=== PATIENT | male | born 1945 | race African-American/Black ===

== ENCOUNTER 2016-11-12 12:58 | Inpatient (IN) ==
--- NOTE | 2016-11-12 14:25 | EKG Report ---
Stationary ECG Study [facility] Test Date: 11/12/2016 2:22:03 PM Pat Name: JOSE FRANCISCO TORRES Department: Room: Gender: M Post Graduate Intern: NAHEED : 1945 Requested by: Cinthya Desouza Order Number: [id number] Reading MD: JARRELL GILL Intervals [place] Rate: 47 P: 63 IA: 197 QRS: 22 QRSD: 102 T: -79 QT: 457 QTc: 419 Interpretive Statements SINUS BRADYCARDIA WITH OCCASIONAL VENTRICULAR PREMATURE COMPLEXES MODERATE T-WAVE ABNORMALITY, CONSIDER LATERAL ISCHEMIA MODERATE ST-T WAVE ABNORMALITY, CONSIDER INFERIOR ISCHMIA Electronically Signed On 11-14-16 21:35:31 CDT by JARRELL GILL [email or web address]
--- NOTE | 2016-11-12 14:44 | XRay Report ---
Referring Physician: Cinthya Desouza MD Exam: XR chest 1V portable Date: November 12, 2016 at 2:33 PM Reason: Altered mental status Comparison: Chest one view portable April 14, 2016 Findings: The cardiac silhouette is again enlarged. No focal consolidation, pneumothorax or pleural effusion is identified. No acute osseous process is seen. Impression: 1. Cardiomegaly. 2. No acute pulmonary process is identified. PROCEDURE INTERPRETED AT [facility] DEPARTMENT OF RADIOLOGY Final Report Signed by: Dr. Gama Kaur
--- NOTE | 2016-11-12 14:57 | CT Report ---
Referring physician: Cinthya Desouza MD Exam: CT brain without contrast Date: November 12, 2016 Comparison: CT brain without contrast April 26, 2010 Reason: Altered mental status, left-sided weakness The patient is an Emergency Department patient on November 12, 2016. Technique: Axial images of the head were obtained without the use of contrast. Total DLP was 1042.6 mGy*cm. Findings: There is mild to moderate generalized cerebral and cerebellar atrophy/volume loss, which may have slightly progressed. There is also probable chronic microvascular ischemic change. An ill-defined area of low-attenuation is seen within the anterior aspect of the left basal ganglia, involving the caudate. This is not seen on the previous study and and likely represents an area of infarction, possibly acute. No hydrocephalus or midline shift is present. There is no evidence of recent intracranial hemorrhage. No acute osseous process is seen. Prominent calcified plaque is noted at the intracranial internal carotid arteries. The mastoid air cells and visualized paranasal sinuses are clear. Impression: 1. There is a small ill-defined area of low attenuation within the anterior left basal ganglia, which is not seen on the previous study. This is concerning for a small indeterminate age infarction and may be acute. 2. There is mild to moderate generalized cerebral and cerebellar atrophy/volume loss, which appears slightly more prominent today. Chronic microvascular ischemic change is also again suspected. The finding at the anterior aspect of the left basal ganglia was discussed with Dr. Desouza on November 12, 2016 at 2:53 PM. This is a critical test. The CT exam was performed using one or more of the following dose reduction techniques: Automated exposure control and adjustment of the mA and/or kV according to patient size. PROCEDURE INTERPRETED AT [facility] DEPARTMENT OF RADIOLOGY Final Report Signed by: Dr. Gama Kaur
[2016-11-12 15:08] LABS: Basophils % 0.3 % (0.0-0.8); Eosinophils # 0.2 10*3/uL (0.0-0.87); Eosinophils % 2.4 % (0.00-10.9); Hematocrit 43.3 VOL% (42.0-52.0); Hemoglobin 13.6 GM/DL (14.0-18.0); Immature Granulocytes % 0.3 %; Immature Granulocytes Absolute 0.03 #; Lymphocytes # 2.1 10*3/uL (1.4-4.0); Lymphocytes % 21.4 % (21.2-54.2); Mean Corpuscular HGB Conc 31.4 GM/DL (32-36); Mean Corpuscular Hemoglobin 26 PG (27-34); Mean Corpuscular Volume 82.8 FL (87-102); Mean Platelet Volume 12.3 FL (9.6-12.0); Monocytes # 1.3 10*3/uL (0.11-0.8); Monocytes % 13.4 % (1.7-12.7); Neutrophils # 6.2 10*3/uL (1.4-7.4); Neutrophils % 62.2 % (38.7-73.9); Platelet Count 211 T/CUMM (130-400); Red Blood Count 5.23 MC/CUMM (3.8-5.5); Red Cell Distribution Width 13.2 % (9.3-17.3); White Blood Count 9.9 T/CUMM (4-12)
[2016-11-12 15:20] LABS: INR 1.1; Partial Thromboplastin Time 28.1 SECS (0-40)
[2016-11-12 15:24] LABS: Apearance,Urine CLEAR (Clear); Bilirubin,Urine Negative (Negative); Blood, Urine Small mg/dL (Negative); Glucose,Urine (UA) Negative (Negative); Hyaline Casts,Urine 7 /LPF (0-3); Ketones,Urine Negative (Negative); Mucus,Urine Occasional /LPF (Occasional); Nitrite,Urine Negative (Negative); Protein,Urine Negative; RBC,Urine 2 /HPF (0-4); Squamous Epithelial Cell,Urine Occasional /HPF (0-10); Urine Color Yellow (Yellow); Urine Urobilinogen < 2.0 EU/DL (0.2-1.0); WBC,Urine 11 /HPF (0-6)
[2016-11-12 16:21] LABS: Barbiturates Screen,Urine Negative (Negative); Benzodiazepines Screen,Urine Negative (Negative); Cannabinoid Screen,Urine Negative (Negative); Opiate Screen,Urine Negative (Negative); Phencyclidine Screen,Urine Negative (Negative)
[2016-11-12 16:26] LABS: Calcium 9.5 MG/DL (8.5-10.1); Osmolality,Calculated 279.4 MOS/KG (273-304); Potassium 3.5 MMOL/L (3.5-5.1)
--- NOTE | 2016-11-12 16:31 | Emergency Department Note ---
IQuirino Emily, am scribing for, and in the presence of, Cinthya Desouza MD 14:12 . ILyly Kathryn, MD, personally performed the services described in this documentation, ascribed by June Win in my presence, and it is both accurate and complete [id number] . Arrival - Arrival Chief Complaint: Extremity Problem Stated Complaint: leg,talking funny,can't hardly walk ED Nursing Triage Note: Pt c/o right leg weakness since Sunday with difficulty ambulating but patient got out of WC in [place] and walked into triage. Pt denies being weak anywhere else. Mode of Arrival: Ambulatory Limitations: No Limitations Source: Patient, Family - History of Present Illness HPI Narrative: This is a 71 year old male with history of TIA, HTN, CAD s/p stent placement ( last placed Aug 2016 w/ Dr. Wang) on plavix brought into ER by his daughter for complaints of difficulty ambulating, right lower leg weakness, and slurred speech. Patient just points to his right leg during examination, but otherwise is difficult to understand. Daughter lives with patient, reports for past week he has had difficulty walking and some right leg weakness. She notices differences in his gait. He is also also "acting funny" with slurred speech. She reports he has some increased urinary incontinence. She denies any recent witnessed falls. Patient denies any chest pain, shortness of breath, abdominal pain. Onset (ago): week(s) (2) Consistency: constant Severity: moderate Allergies/Adverse Reactions: Allergies Allergy/AdvReac Type Severity Reaction Status Date / Time No Known Allergies Allergy Verified 04/14/16 08:51 Home Medications: Home Medications Medication Instructions Recorded Confirmed Type Acetaminophen Tab [Tylenol Tab] 325 mg PO Q4H PRN #0 tablet 04/20/16 Rx Albuterol Sulfate [Ventolin HFA] 2 puff INH Q6H PRN #1 inhaler 04/20/16 Rx Albuterol/Ipratropium Neb [Duoneb] 3 ml RESP TX RT Q6H #120 04/20/16 Rx nebulization solution Aspirin EC Tab 81 mg PO DAILY tablet 04/20/16 Rx Atorvastatin [Lipitor] 80 mg PO DAILY #60 tablet 04/20/16 Rx Carvedilol [Coreg] 3.125 mg PO BID #60 tablet 04/20/16 Rx Clopidogrel [Plavix] 75 mg PO DAILY #30 tablet 04/20/16 Rx Furosemide Tab [Lasix Tab] 40 mg PO DAILY #30 tablet 04/20/16 Rx Lisinopril [Prinivil] 10 mg PO DAILY #30 tablet 04/20/16 Rx Spironolactone [Aldactone] 25 mg PO DAILY #30 tablet 04/20/16 Rx Review of System - Review of System 12 point system: reviewed and no additional remarkable complaints except as stated - Review of System Constitutional: Present: weakness. Absent: fever Eyes: Absent: vision change Head/Ears/Nose/Throat: Absent: nasal drainage Respiratory: Absent: cough, respiratory distress, wheezing Cardiovascular: Absent: chest pain, palpitations, dyspnea on exertion, edema Gastrointestinal: Absent: abdominal pain, nausea, vomiting, diarrhea, constipation Genitourinary male: Present: other (urinates on himself). Absent: dysuria Musculoskeletal: Present: leg pain (right leg weakness). Absent: arm pain, back pain Skin: Absent: rash Neurological: Present: weakness, confusion, abnormal gait. Absent: headache, numbness, paresthesias Medical,Surgical,& Family Hx - Medical History Cardio: History of: CAD, Hypertension Neurology: History of: TIA HEENT: History of: Eye Problem (Cataracts; Glasses), Dental Problems (Full Set Dentures) Respiratory: History of: Asthma (childhood) No history of: Respiratory Problems (No Flu or pneum Vac) Gastrointestinal: History of: GERD, Polyps (c-scope 04/04/16 4-5 polyps removed) Hematology: No history of: Blood Transfusion Reaction (No Transfusions) Other: No history of: Anesthesia Reactions, Cancer - Surgical History Cardiac Surgeries: Sugical HX of: Cardiac Catheterization (stent Dr Wang) HEENT Surgeries: Surgical HX of: Eye Surgery (Rt Eye; 09/29/15 Sched for Lt Eye Dr. Avina) Abdominal Surgeries: Surgical HX of: Colonoscopy - Family History Family History: Reports;: Family Heart Disease (mama, father), Family Hypertension (mama, father) - Social History Smoking Status: Former smoker Exam Vital Signs: Vital Signs Temperature 99.1 F 11/12/16 13:01 Pulse Rate 49 L 11/12/16 14:50 Respiratory Rate 18 11/12/16 14:50 Blood Pressure 134/69 11/12/16 14:50 O2 Sat by Pulse Oximetry 96 11/12/16 13:01 - General General appearance: alert, in no apparent distress - Head Head exam: Present: atraumatic, normocephalic - Eye Eye exam: Present: normal appearance, PERRL, EOMI - ENT ENT exam: Present: normal exam, normal oropharynx, mucous membranes moist. Absent: mucous membranes dry - Neck Neck exam: Present: normal inspection, full ROM. Absent: tenderness, lymphadenopathy - Chest Chest inspection: Present: normal inspection, symmetric chest wall rise. Absent : tenderness - Respiratory Respiratory exam: Present: normal lung sounds bilaterally. Absent: rales, rhonchi, wheezes - Cardiovascular Cardiovascular exam: Present: regular rate, normal rhythm, normal heart sounds. Absent: murmur, rubs, gallop - Abdominal Exam Abdominal exam: Present: soft, normal bowel sounds. Absent: distention, tenderness - Extremities Exam Extremities exam: Present: normal inspection - Back Exam Back exam: Present: normal inspection, full ROM. Absent: tenderness - Neurological Exam Neurological exam: Present: alert, oriented X3, CN II-XII intact - Expanded Neurological Exam Patient oriented to: Present: person, place. Absent: time (patient reports year as 2026. ) Speech: Present: expressive aphasia Cranial nerves: EOM function (II, III, IV, ): Normal, facial sensation (V): Normal, facial palsy (VII): Normal, spinal accessory function (XI): Normal, tongue deviation (XII): Normal Cerebellar function: finger to nose: Normal, heel to goddard: Normal Cerebellar function: wide-based gait Motor strength - LUE: 5/5 Motor strength - RUE: 4/5 Motor strength - LLE: 5/5 Motor strength - RLE: 4/5 Upper motor neuron exam: pronator drift: Absent bilaterally Sensory exam upper extremity: light touch: Normal Sensory exam lower extremity: light touch: Normal - Psychiatric Psychiatric exam: Present: normal affect, normal mood - Skin Skin exam: Present: warm, dry, intact Course Course Narrative: Age indeterminate left basal ganglia stroke, could be acute. Discussed with hospitalist at 1524 for admission. Results - Labs CBC & BMP: 11/12/16 14:50 Lab Results: I have reviewed the patients labs Labs: Laboratory Tests 11/12/16 11/12/16 14:50 14:50 Hgb 13.6 L MCV 82.8 L MCH 26 L MCHC 31.4 L MPV 12.3 H [place] % (Auto) 13.4 H [place] # (Auto) 1.3 H Urine Blood Small Urine Urobilinogen < 2.0 H Urine RBC 2 Urine WBC 11 - EKG EKG results: interpreted by [facility] EKG shows: bradycardia (PVCs, moderate T wave abnormality) - Diagnostic Findings Procedure: Chest x-ray: report reviewed by me (Cardiomegaly. No acute pulmonary process is identified.), CT: report reviewed by me (NCHCT: 1. There is a small ill-defined area of low attenuation within the anterior left basal ganglia, which is not seen on the previous study. This is concerning for a small indeterminate age infarction and may be acute. 2. There is mild to moderate generalized cerebral and cerebellar atrophy/volume loss, which appears slightly more prominent today. Chronic microvascular ichemic change is also again suspected.) Disposition Clinical Impression: Stroke Case discussed with: patient, patient's family Disposition: Still a Patient Time of Disposition: 15:25
--- NOTE | 2016-11-12 16:32 | Hospitalist History & Physical ---
<Sohail Murdock - Last Filed: 11/12/16 17:08> Assessment and Plan (1) Acute encephalopathy Status: Acute Assessment and plan: Pt is confused. Thinks it is 1948. Pt. will be admitted to the monitored bed. Ammonia level drawn. CT shows small 'ill defined area of low attenuation' that is concerning for infarct. Will do MRI. CBC/BMP in am. Consult neuro, speech therapy, PT/OT. Current Visit: Yes (2) Hypertension Status: Acute Assessment and plan: Pt's vs are stable currently. After swallow eval, may be able to resume home meds. Current Visit: Yes (3) History of myocardial infarction Status: Acute Current Visit: No History of Present Illness Chief complaint: altered mental status History of present illness: Mr. Kaur is a 71 year old black male patient with a history of cva, htn, mi with stents, gerd, copd and asthma that was brought into the ED today by daughter for complaints of altered mental status, weakness, and slurred speech. The patient is confused and is unable to provide any information. Pt. denies any chest pain or shortness of breath. He is awake but not oriented to place or time. Daughter is at bedside and is a poor historian. She just states that the patient has just been acting "funny". There are conflicting stories as to how long the patient has been experiencing the symptoms. The daughter states that yesterday the patient's sister stopped by to visit and noticed that something was wrong. Initially the daughter stated that this was the start of the patient 's change in behavior but later said it had been 'maybe a couple of weeks'. CT revealed a 'small ill-defined area of low attenuation in anterior left basal ganglia' area that is concerning for a 'small indeterminate age infarct that may be acute. Pt. will be admitted to the hospitalist service for further evaluation and treatment. MD to follow. Home Medications Medication Instructions Recorded Confirmed Type Acetaminophen Tab [Tylenol Tab] 325 mg PO Q4H PRN #0 tablet 04/20/16 Rx Albuterol Sulfate [Ventolin HFA] 2 puff INH Q6H PRN #1 inhaler 04/20/16 Rx Albuterol/Ipratropium Neb [Duoneb] 3 ml RESP TX RT Q6H #120 04/20/16 Rx nebulization solution Aspirin EC Tab 81 mg PO DAILY tablet 04/20/16 Rx Atorvastatin [Lipitor] 80 mg PO DAILY #60 tablet 04/20/16 Rx Carvedilol [Coreg] 3.125 mg PO BID #60 tablet 04/20/16 Rx Clopidogrel [Plavix] 75 mg PO DAILY #30 tablet 04/20/16 Rx Furosemide Tab [Lasix Tab] 40 mg PO DAILY #30 tablet 04/20/16 Rx Lisinopril [Prinivil] 10 mg PO DAILY #30 tablet 04/20/16 Rx Spironolactone [Aldactone] 25 mg PO DAILY #30 tablet 04/20/16 Rx Allergies Allergy/AdvReac Type Severity Reaction Status Date / Time No Known Allergies Allergy Verified 04/14/16 08:51 Medical,Surgical,& Family Hx - Medical History Cardio: History of: CAD, Hypertension Neurology: History of: TIA HEENT: History of: Eye Problem (Cataracts; Glasses), Dental Problems (Full Set Dentures) Respiratory: History of: Asthma (childhood) No history of: Respiratory Problems (No Flu or pneum Vac) Gastrointestinal: History of: GERD, Polyps (c-scope 04/04/16 4-5 polyps removed) Hematology: No history of: Blood Transfusion Reaction (No Transfusions) Other: No history of: Anesthesia Reactions, Cancer - Surgical History Cardiac Surgeries: Sugical HX of: Cardiac Catheterization (stent Dr Wang) HEENT Surgeries: Surgical HX of: Eye Surgery (Rt Eye; 09/29/15 Sched for [place] Eye Dr. Avina) Abdominal Surgeries: Surgical HX of: Colonoscopy - Family History Family History: Reports;: Family Heart Disease (mama, father), Family Hypertension (mama, father) - Social History Smoking Status: Former smoker Marital Status: Single Lives With:: grandchild Functional capacity: independent ambulation ROS unobtainable: other (review of systems ) - Constitutional Constitutional: Present: weakness - EENT Eyes: Absent: loss of vision Ears: Absent: decreased hearing - Cardiovascular Cardiovascular: Absent: chest pain at rest, edema - Respiratory Respiratory: Absent: cough, dyspnea - Gastrointestinal Gastrointestinal: Absent: abdominal pain, nausea, vomiting - Genitourinary Genitourinary: Present: urinary incontinence - Musculoskeletal Musculoskeletal: Present: limited range of motion - Neurological Neurological: Present: behavioral changes, confusion. Absent: headache(s), numbness - Psychiatric Psychiatric: Present: confusion - Endocrine Endocrine: Present: fatigue Exam - Constitutional Vitals: Period Temp Pulse Resp BP Sys/Cai Pulse Ox Last 24 Hr 99.1 F 49-52 18-18 127-134/66-69 96 General appearance: no acute distress, over weight - Head Head exam: Present: normal inspection, normocephalic - Eye Eye exam: Present: EOMI, scleral icterus. Absent: periorbital swelling Pupils: Present: SARAY. Absent: dilated - Respiratory Respiratory exam: Present: other (coarse) - Cardiovascular Cardiovascular exam: Present: regular rate and rhythm - GI/Abdominal GI/Abdominal exam: Present: normal bowel sounds, soft. Absent: tenderness - Extremities Exam Extremities exam: Present: normal capillary refill, full ROM. Absent: edema - Neurological Exam Neurological exam: Present: alert, altered. Absent: oriented X3 - Expanded Neurological Exam Patient oriented to: Present: person Speech: Present: slurred Coma Scale Eye Opening: Spontaneous Coma Scale Motor Response: Obeys Commands Coma Scale Verbal Response: Confused Coma Scale Total: 14 - Psychiatric Psychiatric exam: Present: normal affect, normal mood - Skin Skin exam: Present: normal color, warm, dry Results - Labs CBC & BMP: 11/12/16 14:50 11/12/16 14:50 Lab Results: I have reviewed the past 24 hour labs <Jennifer Keys - Last Filed: 11/12/16 17:24> History of Present Illness History of present illness: Patient seen and examined along with AUTOS DISASSEMBLER Murdock, agree with history, assessment and plan as documented. 71 y/o AAM admitted with CVA. Unknown time of stroke due to conflicting family stories. Will obtain MRI brain. On exam patient has full use of all extremities. He is oriented to person and place but not time. Results - Labs CBC & BMP: 11/12/16 14:50 11/12/16 14:50
[2016-11-13 00:53] LABS: Basophils % 0.3 % (0.0-0.8); Eosinophils # 0.2 10*3/uL (0.0-0.87); Eosinophils % 2.6 % (0.00-10.9); Hematocrit 38.4 VOL% (42.0-52.0); Hemoglobin 12.5 GM/DL (14.0-18.0); Immature Granulocytes % 0.2 %; Immature Granulocytes Absolute 0.02 #; Lymphocytes # 2.4 10*3/uL (1.4-4.0); Lymphocytes % 25.8 % (21.2-54.2); Mean Corpuscular HGB Conc 32.6 GM/DL (32-36); Mean Corpuscular Hemoglobin 27 PG (27-34); Mean Corpuscular Volume 81.9 FL (87-102); Monocytes # 1.3 10*3/uL (0.11-0.8); Monocytes % 14.2 % (1.7-12.7); Neutrophils # 5.3 10*3/uL (1.4-7.4); Neutrophils % 56.9 % (38.7-73.9); Platelet Count 187 T/CUMM (130-400); Red Blood Count 4.69 MC/CUMM (3.8-5.5); Red Cell Distribution Width 13.1 % (9.3-17.3); White Blood Count 9.3 T/CUMM (4-12)
[2016-11-13 01:27] LABS: Osmolality,Calculated 280.3 MOS/KG (273-304); Potassium 3.5 MMOL/L (3.5-5.1)
[2016-11-13 01:31] LABS: Risk Ratio 2.54; VLDL CHOLESTEROL 13.4 MG/DL
[2016-11-13] MEDS: CLOPIDOGREL 75 MG TABLET PO SCH (08:41)
[2016-11-13] MEDS: ATORVASTATIN 40 MG TABLET PO SCH (08:41)
--- NOTE | 2016-11-13 09:13 | Hospitalist Progress Note ---
<Sohail Murdock - Last Filed: 11/13/16 14:35> Assessment and Plan (1) Acute encephalopathy Status: Acute Assessment and plan: Pt is confused. Thinks it is 194. Pt. will be admitted to the monitored bed. Ammonia level drawn. CT shows small 'ill defined area of low attenuation' that is concerning for infarct. Will do MRI. CBC/BMP in am. Consult neuro, speech therapy, PT/OT. 11/13 Neuro has seen patient. We will follow Dr. Rose's recs. Current Visit: Yes (2) Hypertension Status: Acute Assessment and plan: Pt's vs are stable currently. After swallow eval, may be able to resume home meds. Current Visit: Yes (3) History of myocardial infarction Status: Acute Current Visit: No Hospitalist: Subjective Interval history: Pt. seen and examined. No acute changes overnight. Resting with family present at bedside. Pt. is oriented to person and place but not to time. Pt. is awaiting speech therapy for eval. Will continue to monitor. Exam - Constitutional Vitals: Period Temp Pulse Resp BP Sys/Cai Pulse Ox Last 24 Hr 97.7 F-98.5 F 42-54 18-21 121-149/60-82 93-98 General appearance: no acute distress - Head Head exam: Present: normal inspection, normocephalic - Eye Eye exam: Present: EOMI. Absent: periorbital swelling Pupils: Present: SARAY. Absent: fixed - Respiratory Respiratory exam: Present: wheezes - Cardiovascular Cardiovascular exam: Present: regular rate and rhythm - GI/Abdominal GI/Abdominal exam: Present: normal bowel sounds, soft. Absent: tenderness - Extremities Exam Extremities exam: Present: normal capillary refill, full ROM. Absent: edema - Expanded Neurological Exam Patient oriented to: Present: person, place Coma Scale Eye Opening: Spontaneous Coma Scale Motor Response: Obeys Commands Coma Scale Verbal Response: Confused Coma Scale Total: 14 - Psychiatric Psychiatric exam: Present: normal affect, normal mood - Skin Skin exam: Present: normal color, warm, dry Results - Labs CBC & BMP: 11/13/16 00:36 11/13/16 00:36 Lab Results: I have reviewed the past 24 hour labs Quality Measures - Stroke Presenting Symptoms: On examination - dysphasia - motor Symptom Onset Unknown: Yes <Jennifer Keys - Last Filed: 11/13/16 17:04> Hospitalist: Subjective Interval history: Patient seen and examined independently of DISTANCE LEARNING ADMINISTRATOR Murdock, agree with assessment and plan as documented. Neurology consulted. MRI, carotid dopplers pending. Plan is for rehab placement. Exam - Constitutional Vitals: Period Temp Pulse Resp BP Sys/Cai Pulse Ox Last 24 Hr 97.7 F-98.6 F 42-54 18-21 121-149/60-82 93-98 Results - Labs CBC & BMP: 11/13/16 00:36 11/13/16 00:36
--- NOTE | 2016-11-13 14:15 | Neurology Consult Note ---
History of Present Illness History of present illness: Mr. Kaur is a 71 year old right-handed -[place] gentleman with a history of cva, htn, mi with stents, gerd, copd and asthma that was brought into the ED yesterday by daughter for complaints of altered mental status, weakness, and slurred speech. The patient was confused and was unable to provide any information. Daughter is at bedside and is a poor historian. She just states that the patient has just been acting "funny". There are conflicting stories as to how long the patient has been experiencing the symptoms but it looks like it is probably since Sunday morning. CT revealed a 'small ill-defined area of low attenuation in anterior left basal ganglia' area that is concerning for a 'small indeterminate age infarct that may be acute. Home Medications Medication Instructions Recorded Confirmed Type Albuterol Sulfate [Ventolin HFA] 2 puff INH Q6H PRN #1 inhaler 04/20/16 Rx Albuterol/Ipratropium Neb [Duoneb] 3 ml RESP TX RT Q6H #120 04/20/16 11/12/16 Rx nebulization solution Aspirin EC Tab 81 mg PO DAILY tablet 04/20/16 11/12/16 Rx Atorvastatin [Lipitor] 80 mg PO DAILY #60 tablet 04/20/16 11/12/16 Rx Clopidogrel [Plavix] 75 mg PO DAILY #30 tablet 04/20/16 11/12/16 Rx Furosemide Tab [Lasix Tab] 40 mg PO DAILY #30 tablet 04/20/16 11/12/16 Rx Lisinopril [Prinivil] 10 mg PO DAILY #30 tablet 04/20/16 11/12/16 Rx Spironolactone [Aldactone] 25 mg PO DAILY #30 tablet 04/20/16 11/12/16 Rx Carvedilol [Coreg] 25 mg PO BID 11/12/16 11/12/16 History Allergies Allergy/AdvReac Type Severity Reaction Status Date / Time No Known Allergies Allergy Verified 04/14/16 08:51 12 point system: reviewed and no additional remarkable complaints except as stated Medical,Surgical,& Family Hx - Medical History Cardio: History of: CAD, Hypertension Neurology: History of: Cerebrovascular Accident, TIA HEENT: History of: Eye Problem (Cataracts; Glasses), Dental Problems (Full Set Dentures) Respiratory: History of: Asthma (childhood) No history of: Respiratory Problems (No Flu or pneum Vac) Gastrointestinal: History of: GERD, Polyps (c-scope 04/04/16 4-5 polyps removed) Hematology: No history of: Blood Transfusion Reaction (No Transfusions) Other: No history of: Anesthesia Reactions, Cancer - Surgical History Cardiac Surgeries: Sugical HX of: Cardiac Catheterization (stent Dr Wang) HEENT Surgeries: Surgical HX of: Eye Surgery (Rt Eye; 09/29/15 Sched for [place] Eye Dr. Avina) Abdominal Surgeries: Surgical HX of: Colonoscopy - Family History Family History: Reports;: Family Heart Disease (mama, father), Family Hypertension (mama, father) - Social History Smoking Status: Former smoker Exam - Constitutional Vitals: Period Temp Pulse Resp BP Sys/Cai Pulse Ox Last 24 Hr 97.7 F-98.5 F 42-54 18-21 121-149/60-82 93-98 Exam: GENERAL: Patient is in no acute distress. NECK: Neck is supple. There is no JVD. No carotid bruits present. No thyroid masses. CVS: First and second heart sounds are normal. There is no S3 present. Regular rate and rhythm. RESPIRATORY: Lungs are clear to auscultation without any rales or rhonchi. ABDOMEN: Soft and non-tender. Bowel sounds are present. There is no hepatosplenomegaly. EXT: There is no palpable edema. Peripheral pulses are present. Skin: No rashes Central Nervous system: General: Alert, awake and Oriented x 3 Speech: Fluent but dysarthric Comprehension: Intact and normal Facial expressions: Normal Cranial Nerves: CN1/Olfactory: Normal CN II/ Optic: Normal, Visual Nuñez unreliable CN III, and : SARAY & EOMI CN V: Normal & intact CN VII: Right central facial weak CNVIII: Normal CN XI/X/XI/XII: Intact and Normal Motor: Bulk and Tone is normal. Strength in the right 3/5 Strength in the left 5/5 Sensory: Decreased for all the modalities of PP, LT and temp sense Reflexes: 1+ and symmetrical Cerebellar function: Normal finger to nose and heel to goddard testing. Toes: Equivocal Gait: Walking with mod to max assist. Results - Labs CBC & BMP: 11/13/16 00:36 11/13/16 00:36 Assessment and Plan (1) Acute CVA (cerebrovascular accident) Status: Acute Assessment and plan: Continue Plavix. MRI of the brain Carotid Dopplers Echocardiogram Lipid profile Consult TMR Current Visit: Yes
[2016-11-13 14:36] LABS: Risk Ratio 2.59; VLDL CHOLESTEROL 13.6 MG/DL
[2016-11-13] MEDS ORDERED: ALBUTEROL/IPRATROPIUM 3 ML NEB RESP TX PRN (14:42)
--- NOTE | 2016-11-13 19:00 | Magnetic Resonance Report ---
Referring physician: Jennifer Keys MD Exam: MRI brain with and without contrast Date: November 13, 2016 Comparison: CT brain without contrast November 12, 2016 Reason: Altered mental status, slurred speech The patient is an inpatient who was admitted on November 12, 2016. Technique: MRI of the brain was performed with and without the use of 13 cc of IV Dotarem contrast. Obtained precontrast images include sagittal T1, axial diffusion-weighted, axial FLAIR, axial T2, axial gradient and axial T1 sequences. Postcontrast sequences include axial and coronal T1 sequences. A 1.5 Bindu magnet was used. Findings: There is a 3.9 x 1.5 cm area of diffusion restriction with corresponding T2/FLAIR hyperintensity within the anterior aspect of the left basal ganglia, mainly involving the caudate and putamen. It extends to the left periventricular white matter and is consistent with an acute infarction. There is mild generalized cerebral atrophy/volume loss. Small scattered areas of T2/FLAIR hyperintensity are seen within the cerebral white matter bilaterally. This is nonspecific but is most consistent with mild to moderate chronic microvascular ischemic change. Less likely considerations include a demyelinating process, vasculitis, viral process or Lyme disease. There are also scattered remote lacunar type infarctions within the cerebellum bilaterally and within the anderson. No hydrocephalus or midline shift is present. There is no evidence of recent intracranial hemorrhage. No abnormal extra-axial fluid collection is identified. Major vascular flow voids are visualized. The patient is likely status post cataract surgery. The orbits, sella and brainstem are otherwise unremarkable. There are scattered mucosal thickening within the paranasal sinuses, mainly within the right maxillary sinus. The mastoid air cells appear clear. Impression: 1. There is a 3.9 x 1.5 cm area of acute infarction involving the left basal ganglia, extending to the left periventricular white matter. 2. There is mild to moderate generalized cerebral atrophy/volume loss and probable chronic microvascular ischemic change. 3. Scattered remote lacunar type infarctions within the bilateral cerebellum and anderson. 4. Mild sinus disease. Findings were discussed with Dr. Iyer on November 13, 2016 at 6:35 PM. This is a critical test. PROCEDURE INTERPRETED AT [facility] DEPARTMENT OF RADIOLOGY Final Report Signed by: Dr. Gama Kaur
--- NOTE | 2016-11-13 19:03 | ECHO Report ---
Omkar Kaur Exam Date: 11/13/2016 14:42 Referring Physician: Technologist: Kiki Regalado RDCS Age: 71 Ht (in): 63 Wt (lb): 153 Gender: M Exam Location: [facility] Echo Indications: Acute CVA, Altered mental status, CAD with previous stents, COPD, GERD, Weakness, Slurred speech BP: 129 / 75 HR: 50 Rhythm: Sinus Technical Quality: Fair IMPRESSIONS 1. Left ventricle is probably mildly dilated with mild concentric left ventricular hypertrophy with ejection fraction 50%. There is an area in the anterior apical wall that appears to be hypokinetic. This be consistent with coronary disease. 2. Right ventricle is normal size and systolic function. 3. Right atrium is probably normal size. 4. Left atrium is mildly dilated. 5. Moderate mitral valve regurgitation. 6. Aortic valve is sclerotic trace regurgitation. 7. Pulmonic and tricuspid valves anatomically functionally normal. 8. It worse mildly elevated right-sided pressures. MEASUREMENTS (Male / Female) Normal Values 2D ECHO LV Diastolic Diameter PLAX 6.5 cm 4.2 - 5.9 / 3.9 - 5.3 cm LV Systolic Diameter PLAX 3.1 cm LV Fractional Shortening PLAX 52.5 % IVS Diastolic Thickness 1.0 cm 0.6 - 1.0 / 0.6 - 0.9 cm LVPW Diastolic Thickness 1.1 cm 0.6 - 1.0 / 0.6 - 0.9 cm RV Internal Dim ED PLAX 3.6 cm Aortic Root Diameter 3.6 cm LA Systolic Diameter LX 4.4 cm 3.0 - 4.0 / 2.7 - 3.8 cm DOPPLER TR Peak Velocity 278.0 cm/s TR Peak Gradient 30.9 mmHg FINDINGS Left Ventricle Mildly increased left ventricular cavity size. Mild left ventricular hypertrophy. Left ventricular ejection fraction is estimated at 50 %. Right Ventricle The right ventricle is normal in size and function. Right Atrium The right atrium is probably normal size. Left Atrium The left atrium is mildly enlarged. Mitral Valve Morphologically normal mitral valve. Moderate mitral valve regurgitation. Aortic Valve Aortic valve appears to be a tricuspid structure with sclerosis without stenosis. Trace aortic valve regurgitation. Tricuspid Valve Morphologically normal tricuspid valve. Trace tricuspid valve regurgitation. Tricuspid regurgitation velocities suggest a PAP of 41 mmHg. Pulmonic Valve Morphologically normal pulmonic valve without significant stenosis. There is no pulmonic regurgitation. Pericardium Normal pericardium without effusion. Aorta Normal ascending aorta dimension. Juve Guzman MD (Electronically Signed) Final Date: 13 Nov 2016 19:02
--- NOTE | 2016-11-13 21:20 | Ultrasound Report ---
Referring physician: Monica Saleem MD Exam: Carotid ultrasound Date: November 13, 2016 Comparison: None Reason: Possible CVA Technique: Duplex scan of the carotid arteries was performed using B-Mode/grayscale imaging and Doppler spectral analysis and color flow. Ultrasound images were captured and stored. Findings: There is heterogeneous calcified plaque at the carotid bifurcations bilaterally. The right ICA measures 0.49 cm in diameter, and the left ICA measures 0.51 cm in diameter. The peak systolic velocities are as follows: Right CCA: 56 cm/s Right proximal ICA: 148 cm/s Right distal ICA: 188 cm/s Right ECA: 112 cm/s Left CCA: 64 cm/s Left proximal ICA: 69 cm/s Left distal ICA: 77 cm/s Left ECA: 63 cm/s The peak systolic ICA/CCA velocity ratios are as follows: 3.4 on the right and 1.2 on the left. Antegrade flow is present within both vertebral arteries. Impression: 1. 50-69% stenosis at the right cervical ICA. 2. Less than 50% stenosis at the left cervical ICA. 3. The Society of Radiologists in Ultrasound consensus conference criteria was used. PROCEDURE INTERPRETED AT [facility] DEPARTMENT OF RADIOLOGY Final Report Signed by: Dr. Gama Kaur
[2016-11-14] MEDS: ATORVASTATIN 40 MG TABLET PO SCH (09:16)
[2016-11-14] MEDS: CLOPIDOGREL 75 MG TABLET PO SCH (09:16)
--- NOTE | 2016-11-14 15:54 | Hospitalist Progress Note ---
Assessment and Plan (1) Acute CVA (cerebrovascular accident) Status: Acute Assessment and plan: MRI showed 3.9cm x1.5cm of area of acute infarction of the left basal ganglia extending to the left periventricular white matter. Echo showed EF-50% and left ventricular hypertrophy. Doppler USS showed 50-69% stenosis of the right cervical ICA and less than 50% stenosis of the left cervical ICA. Plan continue with plavix,asa, statins. He has a swing bed available in am CTA of the head and neck Consider outpatient vascular consult follow Neuro's recommendations Current Visit: Yes (2) Status post insertion of drug-eluting stent into left anterior descending ( LAD) artery Status: Acute Assessment and plan: continue with plavix Current Visit: No (3) Hypertension Status: Acute Assessment and plan: stable Current Visit: Yes (4) Bradycardia Status: Acute Assessment and plan: Patient was on Carvedilol _continue to hold TSH level Current Visit: Yes (5) CAD (coronary artery disease) Status: Acute Assessment and plan: cardiac enzymes are negative Current Visit: Yes Hospitalist: Subjective Interval history: Patient seen and he states he feels better. MRI, ECHO and Carotid reports are noted. Patient has a swing bed available in am. Exam - Constitutional Vitals: Period Temp Pulse Resp BP Sys/Cai Pulse Ox Last 24 Hr 97.1 F-98.6 F 46-76 18-20 124-158/71-81 95-99 General appearance: no acute distress - Head Head exam: Present: normal inspection - Respiratory Respiratory exam: Present: clear to auscultation bilaterally - Cardiovascular Cardiovascular exam: Present: regular rate and rhythm - GI/Abdominal GI/Abdominal exam: Present: normal bowel sounds - Extremities Exam Extremities exam: Present: normal inspection - Neurological Exam Neurological exam: Present: alert, oriented X3 Results - Labs CBC & BMP: 11/13/16 00:36 11/13/16 00:36 Lab Results: I have reviewed the past 24 hour labs Quality Measures - Stroke Presenting Symptoms: On examination - dysphasia - motor Symptom Onset Unknown: Yes
--- NOTE | 2016-11-14 15:58 | Neurology Progress Note ---
Neurology - PN : Subjective Interval history: Patient seems to be doing okay. Feeling much better. He is walking by himself. No new problems reported. Echo shows ejection fraction of 50%. MRI showed Left basal ganglia acute infarct Exam (Progress Note) - Constitutional Vitals: Period Temp Pulse Resp BP Sys/Cai Pulse Ox Last 24 Hr 97.1 F-98.6 F 46-76 18-20 124-158/71-81 95-99 Exam: GENERAL: Patient is in no acute distress. NECK: Neck is supple. There is no JVD. No carotid bruits present. No thyroid masses. CVS: First and second heart sounds are normal. There is no S3 present. Regular rate and rhythm. RESPIRATORY: Lungs are clear to auscultation without any rales or rhonchi. ABDOMEN: Soft and non-tender. Bowel sounds are present. There is no hepatosplenomegaly. EXT: There is no palpable edema. Peripheral pulses are present. Skin: No rashes Central Nervous system: General: Alert, awake and Oriented x 3 Speech: Fluent but dysarthric Comprehension: Intact and normal Facial expressions: Normal Cranial Nerves: CN1/Olfactory: Normal CN II/ Optic: Normal, Visual Nuñez unreliable CN III, and : SARAY & EOMI CN V: Normal & intact CN VII: Right central facial weak CNVIII: Normal CN XI/X/XI/XII: Intact and Normal Motor: Bulk and Tone is normal. Strength in the right 3/5 Strength in the left 5/5 Sensory: Decreased for all the modalities of PP, LT and temp sense Reflexes: 1+ and symmetrical Cerebellar function: Normal finger to nose and heel to goddard testing. Toes: Equivocal Gait: Walking with supervision. Results - Labs CBC & BMP: 11/13/16 00:36 11/13/16 00:36 Assessment and Plan (1) Acute CVA (cerebrovascular accident) Status: Acute Assessment and plan: Continue Plavix. We will take him to rehab today Current Visit: Yes Quality Measures - Stroke Presenting Symptoms: On examination - dysphasia - motor Symptom Onset Unknown: Yes
[2016-11-14] MEDS ORDERED: ENOXAPARIN 40 MG/0.4 ML SYRINGE SUBCUT SCH (16:30)
--- NOTE | 2016-11-14 18:11 | CT Report ---
Referring Physician: Monica Saleem MD Exam: CT angio neck Date: November 14, 2016 Reason: Carotid artery stenosis Comparison: Carotid ultrasound November 13, 2016 Technique: Axial images of the neck were obtained after administration of 80 cc of Omnipaque 350 IV contrast. Sagittal and coronal reformatted images were also acquired. 3-D reconstructed images of the carotid arteries were also acquired. Findings: There is a three-vessel arch. The innominate and subclavian arteries are patent without significant stenosis. Mild calcified plaque is noted at the aortic arch. The common carotid arteries are patent without significant stenosis. There is partially calcified plaque at the carotid bifurcations and proximal cervical internal carotid arteries bilaterally. The external carotid arteries are patent bilaterally. The proximal right cervical ICA measures 0.21 cm in diameter, and the mid right cervical ICA measures 0.48 cm in diameter. This is consistent with approximately 55% stenosis of the proximal right ICA. The distal right cervical ICA is tortuous. The proximal left ICA measures 0.38 cm in diameter, and the mid left cervical ICA measures 0.44 cm in diameter. This is consistent with less than 50% stenosis. The right vertebral artery is hypoplastic, likely on a congenital basis. Its distal aspect is not well seen, but this could be related to its small size or congenital variation. The patient is likely status post cataract surgery. No suspicious adenopathy is seen at the neck. The thyroid, submandibular and parotid glands are unremarkable. The right maxillary sinus is largely opacified, and the patient appears to be status post sinus surgery. There is also mild fluid within the left mastoid air cells. There is multilevel degenerative change at the spine, but no acute osseous process is seen. Emphysema is present at both upper lung zones, and there is likely minimal scarring at the lung apices. The visualized airway appears patent and is unremarkable. Impression: 1. Approximately 55% stenosis of the proximal right cervical internal carotid artery. NASCET criteria was used. 2. Less than 50% stenosis of the left cervical ICA. NASCET criteria was used. 3. The right vertebral artery is hypoplastic, likely on a congenital basis. It is not well seen distally, but this could be secondary to its small size or congenital variation. 4. Additional CT findings as above. The CT exam was performed using one or more of the following dose reduction techniques: Automated exposure control and adjustment of the mA and/or kV according to patient size. PROCEDURE INTERPRETED AT [facility] DEPARTMENT OF RADIOLOGY Final Report Signed by: Dr. Gama Kaur
--- NOTE | 2016-11-14 18:25 | CT Report ---
Referring Physician: Monica Saleem MD Exam: CT angio head Date: November 14, 2016 Reason: Carotid artery stenosis Comparison: CT brain without contrast November 12, 2016, MRI brain November 13, 2016 Technique: Axial images of the head were obtained after administration of 80 cc of Omnipaque 350 IV contrast. Sagittal and coronal reformatted images were acquired as well as 3-D reconstructed images of the intracranial arteries. Findings: Scattered atherosclerotic change is seen at the intracranial arteries. There is prominent calcified plaque at the distal internal carotid arteries, particularly at the supraclinoid and cavernous segments. Focal high-grade stenosis is seen at the proximal right cavernous ICA, distal right cavernous ICA and supraclinoid right ICA. Scattered mild to moderate areas of narrowing are seen at the cavernous segment of the left ICA. The anterior cerebral arteries and middle cerebral arteries are patent bilaterally without significant stenosis. There is a mildly prominent left posterior communicating artery. The left P1 segment is poorly visualized and may be small or absent on a congenital basis. The right posterior cerebral artery is slightly small in caliber throughout. The posterior cerebral arteries are otherwise unremarkable with no hemodynamically significant focal stenosis identified. The basilar artery is tortuous but patent without significant stenosis. There is a dominant left vertebral artery. The distal right vertebral artery is poorly visualized and may be small or absent on a congenital basis. The superior cerebellar arteries are patent bilaterally. No aneurysm is seen. There is a recent area of infarction involving the left basal ganglia as described on the recent MRI. There is also mild generalized cerebral and cerebellar atrophy/volume loss. Please see the recent MRI for further details. No definite recent intracranial hemorrhage is seen, but evaluation is somewhat limited by the presence of contrast. No acute osseous process is identified. There is mild fluid within the left mastoid air cells. Impression: 1. There is atherosclerotic change at the intracranial arteries, especially the cavernous and supraclinoid segments where there is prominent calcified plaque. At least 2 focal areas of high-grade stenosis are seen at the cavernous right ICA, and there is focal high-grade stenosis at the supraclinoid right ICA. Mild to moderate areas of narrowing are seen at the left cavernous ICA. 2. 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 There is also mild diffuse narrowing of the right posterior cerebral artery. 3. There is a recent infarction involving the left basal ganglia as described on the recent MRI. Please see that report for further details. The CT exam was performed using one or more of the following dose reduction techniques: Automated exposure control and adjustment of the mA and/or kV according to patient size. PROCEDURE INTERPRETED AT [facility] DEPARTMENT OF RADIOLOGY Final Report Signed by: Dr. Gama Kaur
[2016-11-14 18:56] LABS: Free T4 (Free Thyroxine) 1.3 NG/DL (0.76-1.46); Thyroid Stimulating Hormone 0.542 uIU/ml (0.358-3.74)
[2016-11-15 05:51] LABS: Basophils # 0.1 10*3/uL (0.0-0.2); Basophils % 0.5 % (0.0-0.8); Eosinophils # 0.3 10*3/uL (0.0-0.87); Eosinophils % 3.5 % (0.00-10.9); Hematocrit 39.7 VOL% (42.0-52.0); Hemoglobin 12.6 GM/DL (14.0-18.0); Immature Granulocytes % 0.1 %; Immature Granulocytes Absolute 0.01 #; Lymphocytes # 1.8 10*3/uL (1.4-4.0); Lymphocytes % 19.3 % (21.2-54.2); Mean Corpuscular HGB Conc 31.7 GM/DL (32-36); Mean Corpuscular Hemoglobin 27 PG (27-34); Mean Corpuscular Volume 83.4 FL (87-102); Mean Platelet Volume 12.4 FL (9.6-12.0); Monocytes # 1.4 10*3/uL (0.11-0.8); Neutrophils # 5.8 10*3/uL (1.4-7.4); Neutrophils % 61.6 % (38.7-73.9); Platelet Count 174 T/CUMM (130-400); Red Blood Count 4.76 MC/CUMM (3.8-5.5); Red Cell Distribution Width 12.8 % (9.3-17.3); White Blood Count 9.4 T/CUMM (4-12)
[2016-11-15 06:35] LABS: Calcium 8.6 MG/DL (8.5-10.1); Osmolality,Calculated 285.8 MOS/KG (273-304); Potassium 3.9 MMOL/L (3.5-5.1)
--- NOTE | 2016-11-15 07:52 | Discharge Summary ---
<Sohail Murdock - Last Filed: 11/15/16 09:20> Hospital Course - Hospital Course Hospital Course: Mr. Kaur is a 71 year old black male patient with a history of cva, htn, mi with stents, gerd, copd and asthma that was brought into the ED on 11/12 by daughter for complaints of altered mental status, weakness, and slurred speech. The patient was confused and unable to provide any information. Daughter was present but was a poor historian. She just states that the patient has just been acting "funny". There are conflicting stories as to how long the patient has been experiencing the symptoms. CT revealed a 'small ill-defined area of low attenuation in anterior left basal ganglia' area that is concerning for a ' small indeterminate age infarct that may be acute. Pt. was admitted to the hospitalist service. Neuro was consulted to assist with care. PTPt. had a MRI, echo, and carotid dopplers done. MRI showed '3.9cm x1.5cm of area of acute infarction of the left basal ganglia extending to the left periventricular white matter'. Echo showed EF-50% and left ventricular hypertrophy. Doppler USS showed 50-69% stenosis of the right cervical ICA and less than 50% stenosis of the left cervical ICA. Neuro recommended continuation of Plavix and placement at [facility] rehab facility. Pt is stable today and has increased activity.Pt. will be discharged to rehab facility. Pt. to follow up as needed. Diagnosis - Discharge Diagnosis (1) Acute encephalopathy Status: Acute (2) Hypertension Status: Acute (3) History of myocardial infarction Status: Acute Specialty Discharge - Follow Up or Referrals Discharge Plan - Discharge Data Disposition: Disch/Xfer-Ip Rehab Fac - Discharge Medications New Atorvastatin [Lipitor] 80 mg PO DAILY tablet Pantoprazole Tab [Protonix Tab] 20 mg PO DAILY tablet Aspirin EC Tab 81 mg PO DAILY tablet Continue Albuterol/Ipratropium Neb [Duoneb] 3 ml RESP TX RT Q6H #120 nebulization solution Clopidogrel [Plavix] 75 mg PO DAILY #30 tablet Lisinopril [Prinivil] 10 mg PO DAILY #30 tablet Albuterol Sulfate [Ventolin HFA] 2 puff INH Q6H PRN #1 inhaler PRN Reason: Shortness Of Breath/Wheezing Changed Furosemide Tab [Lasix Tab] 20 mg PO BID #30 tablet Discontinued Aspirin EC Tab 81 mg PO DAILY tablet Atorvastatin [Lipitor] 80 mg PO DAILY #60 tablet Spironolactone [Aldactone] 25 mg PO DAILY #30 tablet Carvedilol [Coreg] 25 mg PO BID - Follow Up or Referral - Forms/Instructions Instructions: Ischemic Stroke (DC), Self Care Measures After a Stroke (DC) Exam - Constitutional Vitals: Period Temp Pulse Resp BP Sys/Cai Pulse Ox Last 24 Hr 98.2 F-99.6 F 51-61 18-20 130-160/59-82 92-99 Discharge Results Labs on day of discharge: Labs from last 24 hours 11/15/16 11/15/16 11/14/16 05:29 05:29 18:04 WBC 9.4 RBC 4.76 Hgb 12.6 L Hct 39.7 L MCV 83.4 L MCH 27 MCHC 31.7 L RDW 12.8 Plt Count 174 MPV 12.4 H Neut % (Auto) 61.6 Lymph % (Auto) 19.3 L [place] % (Auto) 15.0 H Eos % (Auto) 3.5 Baso % (Auto) 0.5 Neut # (Auto) 5.8 Lymph # (Auto) 1.8 [place] # (Auto) 1.4 H Eos # (Auto) 0.3 Baso # (Auto) 0.1 Immature Gran % 0.1 Nucleated RBC % 0.0 Immature Gran # 0.01 Nucleated RBCs # 0.00 Sodium 144 Potassium 3.9 Chloride 106 Carbon Dioxide 28 Anion Gap 13.9 BUN 16 Creatinine 1.20 GFR Calculation 69 BUN/Creatinine Ratio 13.00 Glucose 86 Calculated Osmolality 285.8 Calcium 8.6 Free T4 1.30 TSH 3rd Generation 0.542 DS: Provider Date of admission: 11/12/16 16:22 Primary care physician: . No PCP Attending physician on admission: Jennifer Keys MD Consults: 11/12/16 18:25 Consult to Case Mgmt/Social Srvs [CONS] Routine Reason for Case Mgmt/Social Srvs: Discharge Planning Consult to Occupational Therapy [CONS] Routine Reason for Occupational Therapy: Evaluate and Treat Consult Comment: Stroke Consult to Physical Therapy [CONS] Routine Reason for Physical Therapy: Evaluate and Treat Consult Comment: stroke Consult to Physician [CONS] Routine Comment: Consulting Provider: Hashmat,Fransisco Consult to Specialist Group: Neurology Person Notified: Haley Date Notified: 11/13/16 Time Notified: 09:34 11/12/16 18:28 Consult to Pharmacy [CONS] Routine Reason for Pharmacy Consult: Adjust Meds Renal Funct 11/13/16 14:18 Consult to Case Mgmt/Social Srvs [CONS] Routine Reason for Case Mgmt/Social Srvs: Rehab Consult Comment: Truong Cullen Discharging clinician: Sohail Murdock NP <Monica Saleem - Last Filed: 11/15/16 10:22> Hospital Course - Hospital Course Hospital Course: CTA head showed at least 2 focal areas of high grade stenosis are seen at the cavernous right ICA, there is focal high grade stenosis at the supraclinoid right ICA. Mild to moderate areas of narrowing are seen at the left cavernous ICA. CTA neck showed approx 55% stenosis of the proximal right cervical internal carotid artery. less than 50% stenosis of the left cervical ICA. We will get a vascular consult as outpatient.His Carvedilol was held due to low heart rate in the 40s-50s. - Time spent with patient Time with patient DS: Greater than 30 minutes (Time:35mins) Diagnosis - Discharge Diagnosis (1) Acute CVA (cerebrovascular accident) Status: Acute (2) Status post insertion of drug-eluting stent into left anterior descending ( LAD) artery Status: Acute (3) Hypertension Status: Acute (4) Bradycardia Status: Acute (5) CAD (coronary artery disease) Status: Acute Discharge Plan - Discharge Data Condition at Discharge: Stable Discharge Diet: heart healthy Activity: resume usual activities as tolerated - Forms/Instructions Additional Discharge Instructions: Vascular surgery consult-outpt Exam - Constitutional General appearance: no acute distress - Head Head exam: Present: normal inspection - Respiratory Respiratory exam: Present: clear to auscultation bilaterally - Cardiovascular Cardiovascular exam: Present: regular rate and rhythm - GI/Abdominal GI/Abdominal exam: Present: normal bowel sounds - Extremities Exam Extremities exam: Present: normal inspection
[2016-11-15 07:55] VITALS: BP 160/75
[2016-11-15] MEDS: CLOPIDOGREL 75 MG TABLET PO SCH (08:18)
[2016-11-15] MEDS: ATORVASTATIN 40 MG TABLET PO SCH (08:18)
[2016-11-15] MEDS ORDERED: ASPIRIN EC 81 MG TABLET PO SCH (09:00)
[2016-11-15] MEDS ORDERED: PANTOPRAZOLE 20 MG TABLET PO SCH (09:00)
--- NOTE | 2016-11-15 11:29 | Physician Query Form ---
CLICK EDIT DOCUMENT TO SELECT QUERY ANSWER --> OK --> SIGN Jane Sutton RN, CCDS [employer] W) [phone] (f) [phone] [email or web address] PROVIDERS: Make your selection(s) from the choices in EACH section by typing an "x" and enter comments in the comment section. Please use your independent medical judgment in providing your response. This request does not imply that any particular answer is desired or expected. CLINICAL INDICATORS: (Providers should not edit this section) The medical record indicates that the patient was admitted for a stroke, "Doppler USS showed 50-69% stenosis of the right cervical ICA and less than 50% stenosis of the left cervical ICA". Based on the above, could you clarify the appropriate diagnosis, if significant , that supports the above abnormalities and additional evaluation, monitoring, and/or treatment rendered: ( x) Stroke thought to be due to stenosis of the right cervical ICA ( ) Stroke thought to be unrelated to the stenosis of the right cervical ICA ( ) Stroke thought to be due to ( ) Other, please specify: ( ) Clinically unable to determine COMMENTS: Use of terms such as suspected, likely, or probable (associated with a specific diagnosis that is being evaluated, monitored, or treated as if it exists) are acceptable and can be restated in the discharge summary if not ruled out. MTDD
== END 2016-11-15 13:50 | DRG 64 ==
LOC: N.ED 12:58 → SUATTDRO 16:22 → N.EDINP 16:22 → N.5E 18:24
PROVIDERS: ADMIT Internal Medicine; ATTEND Internal Medicine